=== PATIENT | male | born 1955 | race Caucasian/White ===

== ENCOUNTER → 2017-04-08 | Outpatient (CLI) | payer MEDICARE | LOC: CT 08:45 | DX: F17.210 Nicotine dependence, cigarettes, uncomplicated (principal); R59.0 Localized enlarged lymph nodes; J43.2 Centrilobular emphysema; J98.09 Other diseases of bronchus, not elsewhere classified | CPT/HCPCS: G0297 ==

== ENCOUNTER → 2020-12-04 | Day surgery (SDC) | payer MEDICARE, OTHER ==
[~2020-12-04] MED LIST: COMBIVENT RESPIM4 GM INH; CRESTOR 10 MG T10 MG PO; ECOTRIN81 MG PO; FLONASE 0.05% N16 GM; GABAPENTIN600 MG PO; LOPRESSOR 50 MG50 MG PO; METHOCARBAMOL500 MG PO; PROAIR HFA8.5 GM INH
== END | disposition home or self-care (01) ==
LOC: OR 06:05
DX: Z12.11 Encounter for screening for malignant neoplasm of colon (principal); K21.00 Gastro-esophageal reflux disease with esophagitis, without bleeding; K22.10 Ulcer of esophagus without bleeding; K29.70 Gastritis, unspecified, without bleeding; K31.9 Disease of stomach and duodenum, unspecified; K25.9 Gastric ulcer, unspecified as acute or chronic, without hemorrhage or perforation; D12.2 Benign neoplasm of ascending colon; D12.4 Benign neoplasm of descending colon; D12.3 Benign neoplasm of transverse colon; N40.0 Benign prostatic hyperplasia without lower urinary tract symptoms; Z86.010 Personal history of colon polyps; Z87.11 Personal history of peptic ulcer disease; I11.0 Hypertensive heart disease with heart failure; I50.9 Heart failure, unspecified; E78.5 Hyperlipidemia, unspecified; J44.9 Chronic obstructive pulmonary disease, unspecified; F41.9 Anxiety disorder, unspecified; F32.9 Major depressive disorder, single episode, unspecified; N43.3 Hydrocele, unspecified; M10.9 Gout, unspecified; M47.812 Spondylosis without myelopathy or radiculopathy, cervical region; M51.37 Other intervertebral disc degeneration, lumbosacral region; M19.90 Unspecified osteoarthritis, unspecified site; G25.0 Essential tremor; I48.0 Paroxysmal atrial fibrillation; M06.9 Rheumatoid arthritis, unspecified; G62.9 Polyneuropathy, unspecified; E78.00 Pure hypercholesterolemia, unspecified; Z79.82 Long term (current) use of aspirin; Z79.51 Long term (current) use of inhaled steroids; Z79.899 Other long term (current) drug therapy; Z87.891 Personal history of nicotine dependence
CPT/HCPCS: J2704; J7120

== ENCOUNTER → 2021-03-10 | Outpatient (CLI) | payer MEDICARE | LOC: KOH-I 11:00 | DX: Z12.2 Encounter for screening for malignant neoplasm of respiratory organs (principal); F17.210 Nicotine dependence, cigarettes, uncomplicated; R91.1 Solitary pulmonary nodule | CPT/HCPCS: 71271 ==

== ENCOUNTER → 2021-09-11 | Outpatient (CLI) | payer MEDICARE ==
[~2021-09-11] MED LIST changes: +DICLOFENAC SOD100 GM TOP; +DILTIAZEM 24HR180 M1 PO; +ELIQUIS5 MG PO; +ISOSORBIDE MONO30 MG PO; +LORATADINE10 MG PO; +PROTONIX40 MG PO; +STIOLTO RESPIMAT4 GM INH
[2021-09-11 13:15] LABS: RED BLOOD COUNT 5.41 M/UL (4.20-5.50)
[2021-09-11 13:44] LABS: BUN/CREATININE RATIO 23 (0-10)
== END ==
LOC: LAB 11:54
PROVIDERS: Internal Medicine Interventional Cardiology
DX: R94.39 Abnormal result of other cardiovascular function study (principal); I48.91 Unspecified atrial fibrillation; F41.9 Anxiety disorder, unspecified; J44.9 Chronic obstructive pulmonary disease, unspecified; I11.0 Hypertensive heart disease with heart failure; I48.19 Other persistent atrial fibrillation; E78.5 Hyperlipidemia, unspecified; E78.00 Pure hypercholesterolemia, unspecified; I50.9 Heart failure, unspecified
CPT/HCPCS: 36415; 80048; 85025; 85610; 85730

== ENCOUNTER 2021-09-15 09:49 | Inpatient (IN) | payer MEDICARE, MEDICAID ==
[~2021-09-15] VITALS: Ht 177.8 cm; Wt 76.8 kg
[~2021-09-15 09:49] MED LIST changes: -AMIODARONE HCL400 MG PO; -ASPIRIN EC81 MG PO; -DICLOFENAC SOD100 GM TOP; -DILTIAZEM 24HR180 M1 PO; -ELIQUIS5 MG PO; -ISOSORBIDE MONO30 MG PO; -K-DUR TAB 10 M10 MEQ PO; -LASIX TAB 20 MG20 MG PO; -LISINOPRIL5 MG PO; -LORATADINE10 MG PO; -NITROSTAT0.4 MG SL; -PACERONE200 MG PO; -PROTONIX40 MG PO; -STIOLTO RESPIMAT4 GM INH; -TOPROL XL100 MG PO
[2021-09-15 11:05] LABS: HEMOGLOBIN 15.8 gm/dl (14.0-17.5); RED BLOOD COUNT 5.07 M/UL (4.20-5.50); WHITE BLOOD COUNT 12.1 K/UL (4.5-11.0)
[2021-09-15 11:36] LABS: BUN/CREATININE RATIO 29 (0-10)
[2021-09-15] MEDS ORDERED: DILTIAZEM 24HR180 M1 PO (14:31)
[2021-09-15] MEDS ORDERED: ELIQUIS5 MG PO (14:31)
[2021-09-15] MEDS ORDERED: ISOSORBIDE MONO30 MG PO (14:31)
[2021-09-15] MEDS ORDERED: DICLOFENAC SOD100 GM TOP (14:33)
[2021-09-15] MEDS ORDERED: LORATADINE10 MG PO (14:33)
[2021-09-15] MEDS ORDERED: STIOLTO RESPIMAT4 GM INH (14:34)
[2021-09-15] MEDS ORDERED: PROTONIX40 MG PO (14:34)
[2021-09-16 02:23] LABS: HEMOGLOBIN 14.9 gm/dl (14.0-17.5); RED BLOOD COUNT 4.82 M/UL (4.20-5.50)
[2021-09-16 02:27] LABS: WHITE BLOOD COUNT 8.5 K/UL (4.5-11.0)
[2021-09-16 02:36] LABS: BUN/CREATININE RATIO 25 (0-10)
[2021-09-16 22:14] LABS: HEMOGLOBIN 14.8 gm/dl (14.0-17.5); RED BLOOD COUNT 4.72 M/UL (4.20-5.50); WHITE BLOOD COUNT 9.9 K/UL (4.5-11.0)
[2021-09-17 05:15] LABS: HEMOGLOBIN 14.7 gm/dl (14.0-17.5); RED BLOOD COUNT 4.91 M/UL (4.20-5.50); WHITE BLOOD COUNT 9.8 K/UL (4.5-11.0)
[2021-09-17 06:33] LABS: BUN/CREATININE RATIO 21 (0-10)
[2021-09-17] MEDS ORDERED: K-DUR TAB 10 M10 MEQ PO (16:53)
[2021-09-17] MEDS ORDERED: LISINOPRIL5 MG PO (16:53)
[2021-09-17] MEDS ORDERED: PACERONE200 MG PO (16:53)
[2021-09-17] MEDS ORDERED: LASIX TAB 20 MG20 MG PO (16:53)
[2021-09-17] MEDS ORDERED: AMIODARONE HCL400 MG PO (16:53)
[2021-09-17] MEDS ORDERED: TOPROL XL100 MG PO (16:53)
[2021-09-17] MEDS ORDERED: ASPIRIN EC81 MG PO (17:10)
[2021-09-17] MEDS ORDERED: ELIQUIS5 MG PO (17:10)
[2021-09-17] MEDS ORDERED: NITROSTAT0.4 MG SL (17:10)
== END 2021-09-17 21:30 | disposition home or self-care (01) | DRG 286 ==
LOC: ER1 09:49 → PROG CARE 16:41
PROVIDERS: Internal Medicine; Internal Medicine Interventional Cardiology; Nurse Practitioner; Physician Assistant; ADMIT Internal Medicine
PROC: B24BZZ4 Ultrasonography of Heart with Aorta, Transesophageal (ICD-10-PCS; 2021-09-15)
PROC: 4A023N8 Measurement of Cardiac Sampling and Pressure, Bilateral, Percutaneous Approach (ICD-10-PCS; principal; 2021-09-16)
PROC: B2111ZZ Fluoroscopy of Multiple Coronary Arteries using Low Osmolar Contrast (ICD-10-PCS; 2021-09-16)
PROC: 5A2204Z Restoration of Cardiac Rhythm, Single (ICD-10-PCS; 2021-09-16)
DX: I48.91 Unspecified atrial fibrillation (principal); I50.21 Acute systolic (congestive) heart failure; J44.9 Chronic obstructive pulmonary disease, unspecified; Z20.822 Contact with and (suspected) exposure to COVID-19; F17.210 Nicotine dependence, cigarettes, uncomplicated; K25.9 Gastric ulcer, unspecified as acute or chronic, without hemorrhage or perforation; R91.1 Solitary pulmonary nodule; I08.1 Rheumatic disorders of both mitral and tricuspid valves; I11.0 Hypertensive heart disease with heart failure; I42.9 Cardiomyopathy, unspecified; Z79.82 Long term (current) use of aspirin; Z98.890 Other specified postprocedural states; Z82.49 Family history of ischemic heart disease and other diseases of the circulatory system; Z88.8 Allergy status to other drugs, medicaments and biological substances; Z79.01 Long term (current) use of anticoagulants; Z82.3 Family history of stroke
CPT/HCPCS: 36415; 71045; 80048; 80053; 82550; 82553; 82810; 83735; 83874; 83880; 84439; 84443; 84484; 85025; 85027; 85379; 85610; 85730; 92960; 93005; 93306; 93312; 93320; 94760; 96374; 99285; C1751; C1769; J0461; J1644; J1940; J2250; J7040; Q9967; U0002; U0003

== ENCOUNTER → 2021-09-15 | Outpatient (CLI) | payer MEDICARE ==
[~2021-09-15] MED LIST changes: +AMIODARONE HCL400 MG PO; +ASPIRIN EC81 MG PO; -CRESTOR 10 MG T10 MG PO; +CRESTOR40 MG PO; +K-DUR TAB 10 M10 MEQ PO; +LASIX TAB 20 MG20 MG PO; +LISINOPRIL5 MG PO; +NITROSTAT0.4 MG SL; +PACERONE200 MG PO; +TOPROL XL100 MG PO
== END ==
LOC: HEART 5 08:00
DX: I48.0 Paroxysmal atrial fibrillation (principal); I08.1 Rheumatic disorders of both mitral and tricuspid valves; I27.20 Pulmonary hypertension, unspecified
CPT/HCPCS: 93306

== ENCOUNTER 2021-09-20 03:13 | Emergency (ER) | payer MEDICARE ==
[~2021-09-20 03:13] MED LIST changes: +AMIODARONE HCL400 MG PO; +ASPIRIN EC81 MG PO; +DICLOFENAC SOD100 GM TOP; +DILTIAZEM 24HR180 M1 PO; +ELIQUIS5 MG PO; +ISOSORBIDE MONO30 MG PO; +K-DUR TAB 10 M10 MEQ PO; +LASIX TAB 20 MG20 MG PO; +LISINOPRIL5 MG PO; +LORATADINE10 MG PO; +NITROSTAT0.4 MG SL; +PACERONE200 MG PO; +PROTONIX40 MG PO; +STIOLTO RESPIMAT4 GM INH; +TOPROL XL100 MG PO
[2021-09-20 04:17] LABS: WHITE BLOOD COUNT 11.7 K/UL (4.5-11.0)
[2021-09-20 04:34] LABS: BUN/CREATININE RATIO 26 (0-10)
[2021-09-20 04:49] LABS: HEMOGLOBIN 17.3 gm/dl (14.0-17.5); RED BLOOD COUNT 5.49 M/UL (4.20-5.50)
[2021-09-20] MEDS ORDERED: COLACE100 MG PO (09:15)
[2021-09-20] MEDS ORDERED: BENTYL 20MG TAB20 MG PO (09:15)
== END 2021-09-20 09:26 | disposition home or self-care (01) ==
LOC: ER1 03:13
PROVIDERS: Family Medicine
DX: K59.00 Constipation, unspecified (principal); N28.0 Ischemia and infarction of kidney; I48.91 Unspecified atrial fibrillation; I11.0 Hypertensive heart disease with heart failure; I25.10 Atherosclerotic heart disease of native coronary artery without angina pectoris; I50.20 Unspecified systolic (congestive) heart failure; J44.9 Chronic obstructive pulmonary disease, unspecified; Z88.8 Allergy status to other drugs, medicaments and biological substances; Z79.01 Long term (current) use of anticoagulants
CPT/HCPCS: 80053; 81001; 83605; 83690; 85025; 93005; 96374; 99284; J2270; Q9967

== ENCOUNTER → 2021-09-30 | Outpatient (CLI) | payer MEDICARE ==
[~2021-09-30] MED LIST changes: +BENTYL 20MG TAB20 MG PO; +COLACE100 MG PO
== END ==
LOC: LAB 09:01
PROVIDERS: Internal Medicine
DX: I50.9 Heart failure, unspecified (principal)
CPT/HCPCS: 36415; 71046; 80048

== ENCOUNTER → 2021-10-13 | Outpatient (CLI) | payer MEDICARE ==
[2021-10-13 09:43] LABS: HEMOGLOBIN 17.2 gm/dl (14.0-17.5); RED BLOOD COUNT 5.51 M/UL (4.20-5.50); WHITE BLOOD COUNT 9.6 K/UL (4.5-11.0)
[2021-10-13 10:17] LABS: BUN/CREATININE RATIO 26 (0-10)
== END ==
LOC: LAB 08:30
PROVIDERS: Family Medicine; Internal Medicine Interventional Cardiology
DX: I10 Essential (primary) hypertension (principal); E78.5 Hyperlipidemia, unspecified; M10.9 Gout, unspecified; R94.39 Abnormal result of other cardiovascular function study; I48.0 Paroxysmal atrial fibrillation; R07.9 Chest pain, unspecified
CPT/HCPCS: 36415; 80053; 80061; 83735; 84550; 85025; 85610; 85730; 93005

== ENCOUNTER 2021-10-27 08:24 | Inpatient (IN) | payer MEDICARE ==
[~2021-10-27] VITALS: Ht 177.8 cm; Wt 74.8 kg
[2021-10-27] MEDS ORDERED: PATADAY2.5 ML EYEBOTH (09:42)
[2021-10-27] MEDS ORDERED: TIZANIDINE HCL2 M1 PO (09:43)
[2021-10-27] MEDS ORDERED: STIOLTO RESPIMAT4 GM INH (09:43)
[2021-10-27] MEDS ORDERED: ASPIRIN CHEWABL81 MG PO (09:49)
--- NOTE | 2021-10-27 22:18 | NUR ---
ERROR WITH CHARTED ASSESSMENT. DATE WAS ACTUALLY 10/27/211929.
[2021-10-27 23:18] LABS: RED BLOOD COUNT 4.83 M/UL (4.20-5.50); WHITE BLOOD COUNT 9.1 K/UL (4.5-11.0)
[2021-10-28 06:11] LABS: HEMOGLOBIN 15.1 gm/dl (14.0-17.5); RED BLOOD COUNT 4.95 M/UL (4.20-5.50); WHITE BLOOD COUNT 8.4 K/UL (4.5-11.0)
[2021-10-28 06:29] LABS: BUN/CREATININE RATIO 25 (0-10)
[2021-10-30 09:54] LABS: HEMOGLOBIN 15.5 gm/dl (14.0-17.5); RED BLOOD COUNT 5.29 M/UL (4.20-5.50); WHITE BLOOD COUNT 7.3 K/UL (4.5-11.0)
[2021-10-30] MEDS ORDERED: AMIODARONE HCL200 MG PO (14:27)
[2021-10-30] MEDS ORDERED: PLAVIX75 MG PO (14:32)
[2021-10-30] MEDS ORDERED: BENTYL 20MG TAB20 MG PO (14:44)
[2021-10-30] MEDS ORDERED: DOCUSATE SODIU100 MG PO (14:47)
== END 2021-10-30 17:40 | disposition home or self-care (01) | DRG 246 ==
LOC: PROG CARE 08:24 → CATH 08:24 → PROG CARE 16:05 → CATH 10-29 14:26 → CDU 10-29 14:26 → PROG CARE 10-29 15:29
PROVIDERS: ADMIT Internal Medicine Interventional Cardiology
PROC: 4A023N7 Measurement of Cardiac Sampling and Pressure, Left Heart, Percutaneous Approach (ICD-10-PCS; principal; 2021-10-29)
PROC: 027035Z Dilation of Coronary Artery, One Artery with Two Drug-eluting Intraluminal Devices, Percutaneous Approach (ICD-10-PCS; 2021-10-29)
PROC: B2111ZZ Fluoroscopy of Multiple Coronary Arteries using Low Osmolar Contrast (ICD-10-PCS; 2021-10-29)
DX: I25.110 Atherosclerotic heart disease of native coronary artery with unstable angina pectoris (principal); I50.23 Acute on chronic systolic (congestive) heart failure; I48.92 Unspecified atrial flutter; J44.9 Chronic obstructive pulmonary disease, unspecified; E78.5 Hyperlipidemia, unspecified; I11.0 Hypertensive heart disease with heart failure; M54.50 Low back pain, unspecified; G89.29 Other chronic pain; I48.0 Paroxysmal atrial fibrillation; Z20.822 Contact with and (suspected) exposure to COVID-19; I25.5 Ischemic cardiomyopathy; M06.9 Rheumatoid arthritis, unspecified; Z82.49 Family history of ischemic heart disease and other diseases of the circulatory system; Z83.3 Family history of diabetes mellitus; Z95.1 Presence of aortocoronary bypass graft; Z98.52 Vasectomy status; Z79.82 Long term (current) use of aspirin; Z79.899 Other long term (current) drug therapy; Z79.52 Long term (current) use of systemic steroids; Z87.891 Personal history of nicotine dependence
CPT/HCPCS: 36415; 71045; 80048; 80053; 82550; 82553; 83735; 83880; 84439; 84443; 84484; 85027; 85347; 93005; 99152; 99153; C1725; C1769; C1874; C1887; C9600; C9601; J0461; J1160; J1170; J1644; J2250; J3010; J3246; J7030; J7040; Q9965

== ENCOUNTER → 2021-11-03 | Outpatient (CLI) | payer MEDICARE ==
[~2021-11-03] MED LIST changes: +AMIODARONE HCL200 MG PO; +ASPIRIN CHEWABL81 MG PO; +DOCUSATE SODIU100 MG PO; +PATADAY2.5 ML EYEBOTH; +PLAVIX75 MG PO; +TIZANIDINE HCL2 M1 PO
== END ==
LOC: LAB 07:37
PROVIDERS: Family Medicine
DX: R79.89 Other specified abnormal findings of blood chemistry (principal)
CPT/HCPCS: 36415; 80053

== ENCOUNTER → 2021-12-01 | Outpatient (CLI) | payer MEDICARE ==
[2021-12-01 09:13] LABS: HEMOGLOBIN 15.7 gm/dl (14.0-17.5); RED BLOOD COUNT 5.32 M/UL (4.20-5.50); WHITE BLOOD COUNT 8.5 K/UL (4.5-11.0)
[2021-12-02 07:11] LABS: A/G RATIO 1.4 (1.2-2.2); ALKALINE PHOSPHATASE, S 112 IU/L (44-121); ALT (SGPT) 30 IU/L (0-44); AST (SGOT) 24 IU/L (0-40); BILIRUBIN, TOTAL 0.4 mg/dL (0.0-1.2); BUN 37 mg/dL (8-27); BUN/CREATININE RATIO 23 (10-24); CALCIUM, SERUM 9.5 mg/dL (8.6-10.2); CARBON DIOXIDE, TOTAL 19 mmol/L (20-29); CHLORIDE, SERUM 105 mmol/L (96-106); CREATININE, SERUM 1.63 mg/dL (0.76-1.27); EGFR IF AFRICN AM 50 (>59); EGFR IF NONAFRICN AM 43 (>59); GLOBULIN, TOTAL 3.2 g/dL (1.5-4.5); GLUCOSE, SERUM 102 mg/dL (65-99); POTASSIUM, SERUM 4.9 mmol/L (3.5-5.2); PROTEIN, TOTAL, SERUM 7.6 g/dL (6.0-8.5); SODIUM, SERUM 139 mmol/L (134-144)
[2021-12-02 08:13] LABS: CHOLESTEROL, TOTAL 151 mg/dL (100-199); HDL CHOLESTEROL 47 mg/dL (>39); LDL CHOLESTEROL CALC 84 mg/dL (0-99); LDL/HDL RATIO 1.8 ratio (0.0-3.6); T. CHOL/HDL RATIO 3.2 ratio (0.0-5.0); TRIGLYCERIDES 107 mg/dL (0-149)
== END ==
LOC: LAB 08:40
PROVIDERS: Family Medicine; Physician Assistant
DX: I10 Essential (primary) hypertension (principal); E78.5 Hyperlipidemia, unspecified; I25.10 Atherosclerotic heart disease of native coronary artery without angina pectoris; I48.91 Unspecified atrial fibrillation; I50.22 Chronic systolic (congestive) heart failure
CPT/HCPCS: 36415; 80053; 80061; 84443; 85025

== ENCOUNTER → 2021-12-02 | Outpatient (CLI) | payer MEDICARE | LOC: CATH 06:52 → EDSTATUS 07:30 | PROVIDERS: Internal Medicine Cardiovascular Disease | DX: I48.19 Other persistent atrial fibrillation (principal); I25.5 Ischemic cardiomyopathy; I11.0 Hypertensive heart disease with heart failure; I50.22 Chronic systolic (congestive) heart failure; I25.10 Atherosclerotic heart disease of native coronary artery without angina pectoris; E78.5 Hyperlipidemia, unspecified; I48.92 Unspecified atrial flutter; J44.9 Chronic obstructive pulmonary disease, unspecified; K21.9 Gastro-esophageal reflux disease without esophagitis; Z87.891 Personal history of nicotine dependence; Z88.8 Allergy status to other drugs, medicaments and biological substances; Z79.01 Long term (current) use of anticoagulants; Z79.02 Long term (current) use of antithrombotics/antiplatelets; Z79.899 Other long term (current) drug therapy; Z20.822 Contact with and (suspected) exposure to COVID-19 | CPT/HCPCS: 80048; 92960; 93005; J1200; J1742; J2250; J2310; J3010; J7040; U0002 ==

== ENCOUNTER → 2022-02-09 | Outpatient (CLI) | payer MEDICARE | LOC: HEART 5 09:42 | DX: R06.02 Shortness of breath (principal); Z79.899 Other long term (current) drug therapy | CPT/HCPCS: 94010; 94729 ==

== ENCOUNTER → 2022-03-26 | Outpatient (CLI) | payer MEDICARE | LOC: KOH-I 03-24 13:30 | DX: Z87.891 Personal history of nicotine dependence (principal) | CPT/HCPCS: 71271 ==

== ENCOUNTER 2022-05-11 13:52 | Emergency (ER) | payer MEDICARE | END 2022-05-11 16:25 | disposition home or self-care (01) | LOC: ER1 13:52 | PROVIDERS: Family Medicine | DX: R00.1 Bradycardia, unspecified (principal); N28.9 Disorder of kidney and ureter, unspecified; I11.9 Hypertensive heart disease without heart failure; E78.5 Hyperlipidemia, unspecified; I25.10 Atherosclerotic heart disease of native coronary artery without angina pectoris; Z79.01 Long term (current) use of anticoagulants; Z79.82 Long term (current) use of aspirin; Z79.02 Long term (current) use of antithrombotics/antiplatelets; Z88.8 Allergy status to other drugs, medicaments and biological substances; Z79.899 Other long term (current) drug therapy | CPT/HCPCS: 36415; 80048; 83735; 93005; 99284 ==

== ENCOUNTER → 2022-06-29 | Outpatient (CLI) | payer MEDICARE | LOC: EXRD 05-28 15:30 | DX: N17.9 Acute kidney failure, unspecified (principal) | CPT/HCPCS: 76775 ==